=== PATIENT | male | born 1960 | race Asian ===

== ENCOUNTER 2017-06-24 17:51 | Inpatient (IN) | payer OTHER ==
[~2017-06-24] VITALS: Ht 182.9 cm; Wt 88.1 kg
[~2017-06-24 17:51] MED LIST: LISI-167 PO
[2017-06-24] MEDS ORDERED: MAALOX/HYOSCYAMINE/LIDOCAINE 45 ML BTL ONE (18:10)
[2017-06-24] MEDS ORDERED: MAALOX/HYOSCYAMINE/LIDOCAINE 45 ML BTL PO ONE (18:30)
[2017-06-24 18:34] LABS: BASOPHILS # (AUTO) 0.02 x10^3/uL (0-0.1); BASOPHILS % (AUTO) 0 % (0-1); EOSINOPHILS # (AUTO) 0.02 x10^3/uL (0-0.4); EOSINOPHILS % (AUTO) 0 % (1-7); LYMPHOCYTES # (AUTO) 2.06 x10^3/uL (1-3.4); LYMPHOCYTES % (AUTO) 24 % (22-44); MD NO; MEAN CORPUSCULAR HEMOGLOBIN 30.5 pg (27.5-34.5); MEAN CORPUSCULAR HGB CONC 33.5 g/dL (33.2-36.2); MEAN CORPUSCULAR VOLUME 90.8 fL (81-97); MEAN PLATELET VOLUME 7.1 fL (7.4-10.4); MONOCYTES % (AUTO) 6 % (2-9); NEUTROPHILS # (AUTO) 6.09 x10^3/uL (1.8-6.8); NEUTROPHILS % (AUTO) 70 % (42-75); PLATELET COUNT 319 x10^3/uL (130-400); RED BLOOD COUNT 4.75 x10^6/uL (4.38-5.82); RED CELL DISTRIBUTION WIDTH 14.6 % (9.4-14.8)
[2017-06-24 18:39] LABS: ALANINE AMINOTRANSFERASE 64 U/L (12-78); ALBUMIN 4.2 g/dL (3.4-5.0); ANION GAP 10 mmol/L (5-15); CALCIUM 8.6 mg/dL (8.5-10.1); CHLORIDE 105 mmol/L (98-107); CREATININE 1.75 mg/dL (0.7-1.3)
[2017-06-24 18:44] LABS: ALKALINE PHOSPHATASE 62 U/L (45-117); BILIRUBIN,TOTAL 0.4 mg/dL (0.2-1.0); TOTAL PROTEIN 8.1 g/dL (6.4-8.2); TROPONIN I < 0.015 ng/mL (0.000-0.045)
[2017-06-24] MEDS ORDERED: LABETALOL 5MG/ML, 20ML IVPush STA (19:11)
[2017-06-24] MEDS ORDERED: LABETALOL 5MG/ML, 20ML ONE (19:26)
[2017-06-24] MEDS ORDERED: NITROGLYCERIN 0.4 MG BOTTLE (25 TABS) SL PRN (21:30)
[2017-06-24] MEDS ORDERED: hydrALAzine 20 MG/ML, 1ML IVPush PRN (21:30)
[2017-06-24] MEDS ORDERED: ACETAMINOPHEN 325 MG TABLET PO PRN (21:30)
[2017-06-24] MEDS ORDERED: morphine SULFATE 10 MG/ML, 1ML IVPush PRN (21:30)
[2017-06-24] MEDS ORDERED: ONDANSETRON 2MG/ML, 2ML IVPush PRN (21:30)
[2017-06-24 22:00] VITALS: BP 149/93
[2017-06-24] MEDS: SODIUM CHLORIDE 0.9% 1,000 ML IV SCH (22:31)
[2017-06-25 00:15] VITALS: BP 135/82
[2017-06-25] MEDS: SODIUM CHLORIDE 0.9% 1,000 ML IV SCH ×3 (05:03→17:05)
[2017-06-25 05:10] VITALS: BP 102/60
[2017-06-25 05:15] LABS: CALCIUM 8.1 mg/dL (8.5-10.1); CHLORIDE 110 mmol/L (98-107); CREATININE 1.02 mg/dL (0.7-1.3)
[2017-06-25 05:17] LABS: ANION GAP 8 mmol/L (5-15)
[2017-06-25 08:15] VITALS: BP 99/60
[2017-06-25 15:25] VITALS: BP 118/78
[2017-06-25] MEDS ORDERED: SODIUM CHLORIDE 0.9% 1,000 ML IV SCH (17:30)
[2017-06-25 18:33] VITALS: BP 144/93
[2017-06-26 01:20] VITALS: BP 145/88
[2017-06-26 07:50] VITALS: BP 107/69
[2017-06-26] MEDS ORDERED: LISI-167 PO (09:32)
== END 2017-06-26 13:15 | disposition home or self-care (01) | DRG 304 ==
LOC: ED 19:37 → SUATTDRO 20:41 → EDIP 21:05 → 5SO 21:49 → DCLOUNGE 06-26 13:05
PROVIDERS: ADMIT Hospitalist; ATTEND Hospitalist
DX: I16.0 Hypertensive urgency (principal); N17.0 Acute kidney failure with tubular necrosis; E11.65 Type 2 diabetes mellitus with hyperglycemia; I10 Essential (primary) hypertension
CPT/HCPCS: 36415; 71045; 76770; 80048; 80053; 82384; 83690; 83735; 83835; 84100; 84484; 85025; 93005; 96374; J7030